=== PATIENT | male | born 1975 | race Caucasian/White ===

== ENCOUNTER 2016-12-15 02:41 | Observation (INO) | payer BC, OTHER ==
[2016-12-15] MEDS ORDERED: Sodium Chloride 0.9% 1000 ML 1,000 ML IV STA ×2 (02:43→04:25)
[2016-12-15] MEDS ORDERED: Narcan 0.4 MG/ML IV ONE (02:43)
[2016-12-15 02:53] LABS: BASOPHIL % 0.3 % (0.0-0.4); Eosinophil % 1.6 % (0.00-5.0); Granulocytes % 55.6 % (36.0-66.0); Lymphocytes % 31.1 % (24.0-44.0); Mean Cell Volume 92.5 fl (78-100); Mean Corpuscular Hemoglobin 30.1 pg (26-32); Monocytes % 11.4 % (0.0-12.0); Platelet Count 395 K/mm3 (150-450); Red Blood Count 4.79 M/mm3 (4.1-5.6); Red Cell Distribution Width 14.3 % (11.5-14.0)
--- NOTE | 2016-12-15 02:56 | ERPHSYRPT ---
- History of Present Illness Time Seen by Provider: 12/15/16 02:41 Source: police Exam Limitations: clinical condition Physician History: PT WAS BROUGHT IN UNRESPONSIVE FROM HOME AND REPORTEDLY HAS BEEN DRINKING ALCOHOLIC BEVERAGES. Allergies/Adverse Reactions: No Known Drug Allergies Allergy (Unverified 12/15/16 03:15) - Review of Systems All Other Systems: Unable due to condition (PT UNRESPONSIVE.) - Nursing Vital Signs Nursing Vital Signs: Initial Vital Signs Temperature 95.0 F Temperature Source Core Pulse Rate [] 126 Pulse Rate 110 Respiratory Rate 26 Blood Pressure [] 135/98 - Physical Exam General Appearance: other (UNRESPONSIVE) Eye Exam: other (PUPILS 4MM AND MINIMALLY REACTIVE TO LIGHT) Ears, Nose, Throat Exam: pharyngeal erythema, other (SNORING) Neck Exam: normal inspection Respiratory Exam: other (TRANSMITTED UPPER AIRWAY SOUNDS BILATERALLY) Cardiovascular Exam: normal heart sounds Gastrointestinal/Abdomen Exam: soft, normal bowel sounds Extremity Exam: pelvis stable, No pedal edema Neurologic Exam: other (UNRESPONSIVE; BABINSKI NOT PRESENT.) Skin Exam: ecchymosis (BRUISING ON THE RIGHT CALF AND LEFT ARM) SpO2 Interpretation: normal SpO2: 95 Oxygen Delivery: Non-rebreather - Course Nursing assessment & vital signs reviewed: Yes EKG Interpreted by Me: RATE ([id number]), Sinus Tach, NORMAL AXIS, NORMAL INTERVALS - Radiology Exams Chest X-ray Interpretation: Interpreted by me, No Pneumonia - CT Exams Head CT Interpretation: Tele-radiologist Report (NO INTRACRANIAL ABNORMALITIES) Cervical Spine CT Interpretation: Tele-radiologist Report (NO ACUTE FINDINGS; NO FRACTURES.) Ordered Tests: Active Orders 24 hr Category Date Time Status Accucheck STAT Care 12/15/16 02:43 Active Director Of Student Financial Services STAT Care 12/15/16 02:43 Active Catheter-Ferney Sánchez STAT Care 12/15/16 02:43 Active EKG-ER Only STAT Care 12/15/16 02:43 Active IV Insertion STAT Care 12/15/16 02:43 Active Oxygen-ED Only NASAL CANNULA 2 lpm Care 12/15/16 02:43 Active Pulse Oximetry (ED) STAT Care 12/15/16 02:43 Active CERVICAL SPINE WO CONTRAST [CT] Stat Exams 12/15/16 02:44 Ordered CHEST 1 VIEW (PORTABLE) Stat Exams 12/15/16 02:44 Ordered HEAD WITHOUT CONTRAST [CT] Stat Exams 12/15/16 02:44 Ordered ABG [ARTERIAL BLOOD GASES] Stat Lab 12/15/16 04:31 Completed ACETAMINOPHEN Stat Lab 12/15/16 02:48 Completed ARTERIAL BLOOD GASES Urgent Lab 12/15/16 02:47 Completed BLOOD CULTURE Stat Lab 12/15/16 03:28 Received CBC W DIFF Stat Lab 12/15/16 02:48 Completed CMP Stat Lab 12/15/16 02:48 Completed CULTURE,URINE Stat Lab 12/15/16 03:02 Received Ethyl Alcohol,Urine Stat Lab 12/15/16 03:02 Completed Lactic Acid Urgent Lab 12/15/16 02:47 Completed MAGNESIUM Stat Lab 12/15/16 02:48 Completed SALICYLATE Stat Lab 12/15/16 02:48 Completed UA W/ MICROSCOPIC Stat Lab 12/15/16 02:53 Completed Urine Triage Profile Stat Lab 12/15/16 02:53 Completed Medication Summary Generic Name Dose Route Start Last Admin Trade Name Valeriano PRN Reason Stop Dose Admin Potassium Chloride 100 mls @ 50 mls/hr 12/15/16 03:40 12/15/16 03:57 Potassium Chloride 20 Meq In Water 100ml IV 12/15/16 05:39 50 mls/hr STAT ONE Administration Sodium Chloride 1,000 mls @ 999 mls/hr 12/15/16 04:25 12/15/16 04:26 Sodium Chloride 0.9% 1000 Ml IV 12/15/16 05:25 999 mls/hr .Q1H1M STA Administration Discontinued Medications Generic Name Dose Route Start Last Admin Trade Name Patricioq PRN Reason Stop Dose Admin Flumazenil 0.2 mg 12/15/16 04:21 12/15/16 04:24 Romazicon 0.5 Mg/5 Ml Injection IV 12/15/16 04:22 0.2 mg STAT ONE Administration Flumazenil Confirm 12/15/16 04:23 Romazicon 0.5 Mg/5 Ml Injection Administered 12/15/16 04:24 Dose 0.1 mg .ROUTE .STK-MED ONE Flumazenil 0.5 mg 12/15/16 04:26 12/15/16 04:30 Romazicon 0.5 Mg/5 Ml Injection IV 12/15/16 04:27 0.5 mg STAT ONE Administration Flumazenil Confirm 12/15/16 04:28 Romazicon 0.5 Mg/5 Ml Injection Administered 12/15/16 04:29 Dose 0.1 mg .ROUTE .STK-MED ONE Sodium Chloride 1,000 mls @ 999 mls/hr 12/15/16 02:43 12/15/16 03:22 Sodium Chloride 0.9% 1000 Ml IV 12/15/16 03:43 999 mls/hr .Q1H1M STA Administration Sodium Chloride Confirm 12/15/16 03:22 Sodium Chloride 0.9% 1000 Ml Administered 12/15/16 03:23 Dose 1,000 mls @ ud .ROUTE .STK-MED ONE Potassium Chloride Confirm 12/15/16 03:56 Potassium Chloride 20 Meq In Water 100ml Administered 12/15/16 03:57 Dose 100 mls @ ud IV .STK-MED ONE Sodium Chloride Confirm 12/15/16 04:25 Sodium Chloride 0.9% 1000 Ml Administered 12/15/16 04:26 Dose 1,000 mls @ ud .ROUTE .STK-MED ONE Naloxone HCl 0.4 mg 12/15/16 02:43 12/15/16 03:21 Narcan 0.4 Mg/Ml IV 12/15/16 02:44 0.4 mg STAT ONE Administration Naloxone HCl 2 mg 12/15/16 03:21 12/15/16 03:23 Narcan 1 Mg/Ml IV 12/15/16 03:22 2 mg STAT ONE Administration Naloxone HCl Confirm 12/15/16 03:18 Narcan 0.4 Mg/Ml Administered 12/15/16 03:19 Dose 0.4 mg .ROUTE .STK-MED ONE Naloxone HCl Confirm 12/15/16 03:22 Narcan 1 Mg/Ml Administered 12/15/16 03:23 Dose 2 mg .ROUTE .STK-MED ONE Naloxone HCl 2 mg 12/15/16 04:26 12/15/16 04:39 Narcan 1 Mg/Ml IV 12/15/16 04:27 2 mg STAT ONE Administration Naloxone HCl Confirm 12/15/16 04:28 Narcan 1 Mg/Ml Administered 12/15/16 04:29 Dose 2 mg .ROUTE .STK-MED ONE Lab/Rad Data: Laboratory Result Diagrams 12/15/16 02:48 12/15/16 02:48 Laboratory Results 12/15/16 12/15/16 12/15/16 Range/Units 04:31 03:02 02:53 WBC (4.0-10.5) K/mm3 RBC (4.1-5.6) M/mm3 Hgb (12.5-18.0) gm/dl Hct (42-50) % MCV (78-100) fl MCH (26-32) pg MCHC (32-36) g/dl RDW (11.5-14.0) % Plt Count (150-450) K/mm3 MPV (6-9.5) fl Gran % (36.0-66.0) % Lymphocytes % (24.0-44.0) % Monocytes % (0.0-12.0) % Eosinophils % (0.00-5.0) % Basophils % (0.0-0.4) % Basophils # (0-0.4) Puncture Site RIGHT RADIAL pCO2 42 (35-45) mmHg pO2 72 L (75-100) mmHg Base Excess 3.9 H (-2.0-2.0) O2 Saturation 89.8 L (94-100) g/dF ABG pH 7.44 (7.35-7.45) ABG HCO3 28.5 H (22-28) ABG O2 Sat (Measured) 97.2 (95-100) % Edmar Test YES A-a Gradient 161 a/A Ratio 0.31 Hemoglobin 13.6 Carboxyhemoglobin 6.2 (0.0-6.9) % THgb Methemoglobin 1.4 (1.4-1.5) % Potassium 3.6 (3.5-5.1) Temperature 37.0 C POC O2 Flow Rate 40 % Inspiratory BiPAP 14 Expiratory BiPAP 6 Sodium (136-145) mEq/L Chloride (98-107) mEq/L Carbon Dioxide (21-32) mEq/L Anion Gap (5-15) MEQ/L BUN (9-20) mg/dL Creatinine (0.55-1.30) mg/dl Estimated GFR ML/MIN Glucose (70-110) MG/DL Lactic Acid (0.4-2.0) Calcium (8.5-10.1) mg/dL Magnesium (1.8-2.4) mg/dL Total Bilirubin (0.2-1.0) mg/dL AST (15-37) U/L ALT (12-78) U/L Alkaline Phosphatase (46-116) U/L Serum Total Protein (6.4-8.2) gm/dL Albumin (3.4-5.0) g/dL Ur Collection Type Urine Color (YELLOW) Urine Appearance (CLEAR) Urine pH 6.0 (5-6) Ur Specific [place] (1.005-1.025) Urine Protein (Negative) Urine Glucose (UA) (NEGATIVE) mg/dL Urine Ketones (NEGATIVE) Urine Nitrite (NEGATIVE) Urine Bilirubin (NEGATIVE) Urine Urobilinogen (0-1) mg/dL Urine WBC (Auto) (NEGATIVE) Urine RBC (Auto) (0-5) Perry/ul Urine Microscopic RBC (0-2) /HPF Urine Microscopic WBC (0-5) /HPF Ur Epithelial Cells (FEW) /HPF Urine Bacteria (NEGATIVE) /HPF Salicylates (2.8-20.0) mg/dl Urine Opiates Level NEG. (NEGATIVE) Ur Methadone NEG. (NEGATIVE) Acetaminophen (10-30) ug/ml Urine Barbiturates NEG. (NEGATIVE) Ur Phencyclidine (PCP) NEG. (NEGATIVE) Urine Amphetamine NEG. (NEGATIVE) U Benzodiazepine Level NEG. (NEGATIVE) Urine Cocaine NEG. (NEGATIVE) Urine Marijuana (THC) NEG. (NEGATIVE) Urine Ethyl Alcohol 170 H (0.00-20) mg/dl Specimen Received 12/15/16 12/15/16 12/15/16 Range/Units 02:53 02:48 02:48 WBC 9.0 (4.0-10.5) K/mm3 RBC 4.79 (4.1-5.6) M/mm3 Hgb 14.4 (12.5-18.0) gm/dl Hct 44.3 (42-50) % MCV 92.5 (78-100) fl MCH 30.1 (26-32) pg MCHC 32.5 (32-36) g/dl RDW 14.3 H (11.5-14.0) % Plt Count 395 (150-450) K/mm3 MPV 9.0 (6-9.5) fl Gran % 55.6 (36.0-66.0) % Lymphocytes % 31.1 (24.0-44.0) % Monocytes % 11.4 (0.0-12.0) % Eosinophils % 1.6 (0.00-5.0) % Basophils % 0.3 (0.0-0.4) % Basophils # 0.03 (0-0.4) Puncture Site pCO2 (35-45) mmHg pO2 (75-100) mmHg Base Excess (-2.0-2.0) O2 Saturation (94-100) g/dF ABG pH (7.35-7.45) ABG HCO3 (22-28) ABG O2 Sat (Measured) (95-100) % Edmar Test A-a Gradient a/A Ratio Hemoglobin Carboxyhemoglobin (0.0-6.9) % THgb Methemoglobin (1.4-1.5) % Potassium 3.0 L* (3.5-5.1) Temperature C POC O2 Flow Rate % Inspiratory BiPAP Expiratory BiPAP Sodium 146 H (136-145) mEq/L Chloride 107 (98-107) mEq/L Carbon Dioxide 27.9 (21-32) mEq/L Anion Gap 14.0 (5-15) MEQ/L BUN 4 L (9-20) mg/dL Creatinine 0.75 (0.55-1.30) mg/dl Estimated GFR > 60 ML/MIN Glucose 110 (70-110) MG/DL Lactic Acid (0.4-2.0) Calcium 8.5 (8.5-10.1) mg/dL Magnesium 2.1 (1.8-2.4) mg/dL Total Bilirubin 0.2 (0.2-1.0) mg/dL AST 22 (15-37) U/L ALT 16 (12-78) U/L Alkaline Phosphatase 71 (46-116) U/L Serum Total Protein 7.0 (6.4-8.2) gm/dL Albumin 3.4 (3.4-5.0) g/dL Ur Collection Type CATH Urine Color LT.YELLOW (YELLOW) Urine Appearance CLEAR (CLEAR) Urine pH 6.0 (5-6) Ur Specific [place] 1.010 (1.005-1.025) Urine Protein NEGATIVE (Negative) Urine Glucose (UA) NEGATIVE (NEGATIVE) mg/dL Urine Ketones NEGATIVE (NEGATIVE) Urine Nitrite NEGATIVE (NEGATIVE) Urine Bilirubin NEGATIVE (NEGATIVE) Urine Urobilinogen 0.2 (0-1) mg/dL Urine WBC (Auto) NEGATIVE (NEGATIVE) Urine RBC (Auto) SMALL (0-5) Perry/ul Urine Microscopic RBC 0-2 (0-2) /HPF Urine Microscopic WBC 0-2 (0-5) /HPF Ur Epithelial Cells FEW (FEW) /HPF Urine Bacteria RARE (NEGATIVE) /HPF Salicylates 4.7 (2.8-20.0) mg/dl Urine Opiates Level (NEGATIVE) Ur Methadone (NEGATIVE) Acetaminophen < 2.0 L (10-30) ug/ml Urine Barbiturates (NEGATIVE) Ur Phencyclidine (PCP) (NEGATIVE) Urine Amphetamine (NEGATIVE) U Benzodiazepine Level (NEGATIVE) Urine Cocaine (NEGATIVE) Urine Marijuana (THC) (NEGATIVE) Urine Ethyl Alcohol (0.00-20) mg/dl Specimen Received 12/15/16 0255 12/15/16 Range/Units 02:47 WBC (4.0-10.5) K/mm3 RBC (4.1-5.6) M/mm3 Hgb (12.5-18.0) gm/dl Hct (42-50) % MCV (78-100) fl MCH (26-32) pg MCHC (32-36) g/dl RDW (11.5-14.0) % Plt Count (150-450) K/mm3 MPV (6-9.5) fl Gran % (36.0-66.0) % Lymphocytes % (24.0-44.0) % Monocytes % (0.0-12.0) % Eosinophils % (0.00-5.0) % Basophils % (0.0-0.4) % Basophils # (0-0.4) Puncture Site RIGHT RADIAL pCO2 65 H* (35-45) mmHg pO2 77 (75-100) mmHg Base Excess 3.4 H (-2.0-2.0) O2 Saturation 88.0 L (94-100) g/dF ABG pH 7.30 L (7.35-7.45) ABG HCO3 32.0 H* (22-28) ABG O2 Sat (Measured) 97.2 (95-100) % Edmar Test YES A-a Gradient 555 a/A Ratio 0.12 Hemoglobin 14.7 Carboxyhemoglobin 8.5 H* (0.0-6.9) % THgb Methemoglobin 1.0 L (1.4-1.5) % Potassium 3.0 L (3.5-5.1) Temperature 37.0 C POC O2 Flow Rate 100 % Inspiratory BiPAP Expiratory BiPAP Sodium (136-145) mEq/L Chloride (98-107) mEq/L Carbon Dioxide (21-32) mEq/L Anion Gap (5-15) MEQ/L BUN (9-20) mg/dL Creatinine (0.55-1.30) mg/dl Estimated GFR ML/MIN Glucose (70-110) MG/DL Lactic Acid 1.6 (0.4-2.0) Calcium (8.5-10.1) mg/dL Magnesium (1.8-2.4) mg/dL Total Bilirubin (0.2-1.0) mg/dL AST (15-37) U/L ALT (12-78) U/L Alkaline Phosphatase (46-116) U/L Serum Total Protein (6.4-8.2) gm/dL Albumin (3.4-5.0) g/dL Ur Collection Type Urine Color (YELLOW) Urine Appearance (CLEAR) Urine pH (5-6) Ur Specific [place] (1.005-1.025) Urine Protein (Negative) Urine Glucose (UA) (NEGATIVE) mg/dL Urine Ketones (NEGATIVE) Urine Nitrite (NEGATIVE) Urine Bilirubin (NEGATIVE) Urine Urobilinogen (0-1) mg/dL Urine WBC (Auto) (NEGATIVE) Urine RBC (Auto) (0-5) Perry/ul Urine Microscopic RBC (0-2) /HPF Urine Microscopic WBC (0-5) /HPF Ur Epithelial Cells (FEW) /HPF Urine Bacteria (NEGATIVE) /HPF Salicylates (2.8-20.0) mg/dl Urine Opiates Level (NEGATIVE) Ur Methadone (NEGATIVE) Acetaminophen (10-30) ug/ml Urine Barbiturates (NEGATIVE) Ur Phencyclidine (PCP) (NEGATIVE) Urine Amphetamine (NEGATIVE) U Benzodiazepine Level (NEGATIVE) Urine Cocaine (NEGATIVE) Urine Marijuana (THC) (NEGATIVE) Urine Ethyl Alcohol (0.00-20) mg/dl Specimen Received - Progress Discussed with Dr.: Fair (OBS - [id number]) - Departure Time of Disposition: 04:47 Departure Disposition: Observation Clinical Impression: UNRESPONSIVENESS, HYPOKALEMIA, ALCOHOL INTOXICATION, HTN, CHRONIC PAIN Condition: Stable Critical Care Time: Yes Critical Care Time(excluding separately billable procedures): 30-74 minutes Referrals: IVETTE SIFUENTES NP [Primary Care Provider] -
[2016-12-15 03:11] LABS: ALBUMIN 3.4 g/dL (3.4-5.0); ALKALINE PHOSPHATASE 71 U/L (46-116); BILIRUBIN,TOTAL 0.2 mg/dL (0.2-1.0); BLOOD UREA NITROGEN 4 mg/dL (9-20); CHLORIDE 107 mEq/L (98-107); Carbon Dioxide 27.9 mEq/L (21-32); Glucose 110 MG/DL (70-110); MAGNESIUM 2.1 mg/dL (1.8-2.4); SGOT/AST 22 U/L (15-37); SGPT/ALT 16 U/L (12-78); SODIUM 146 mEq/L (136-145)
[2016-12-15 03:12] LABS: ACETAMINOPHEN < 2.0 ug/ml (10-30)
[2016-12-15 03:18] LABS: Bacteria RARE /HPF (NEGATIVE); COMPLETE URINE MICROSCOPIC? YES; Collection Type CATH; Epithelial Cells FEW /HPF (FEW); WBC 0-2 /HPF (0-5)
[2016-12-15] MEDS ORDERED: Narcan 0.4 MG/ML ONE (03:18)
[2016-12-15] MEDS ORDERED: NARCAN 1 MG/ML IV ONE ×2 (03:21→04:26)
[2016-12-15] MEDS ORDERED: Sodium Chloride 0.9% 1000 ML 1,000 ML ONE ×2 (03:22→04:25)
[2016-12-15] MEDS ORDERED: NARCAN 1 MG/ML ONE ×2 (03:22→04:28)
[2016-12-15 03:34] LABS: A-aADO2 555; ARTERIAL BLD GAS O2 SATURATION 97.2 % (95-100); ARTERIAL BLOOD GAS BASE EXCESS 3.4 (-2.0-2.0); ARTERIAL BLOOD GAS FIO2 100 %; ARTERIAL BLOOD GAS PO2 77 mmHg (75-100); Lactic Acid 1.6 (0.4-2.0)
[2016-12-15 03:35] LABS: ALLEN TEST OK? YES
[2016-12-15] MEDS ORDERED: POTASSIUM CHLORIDE 20 mEq IN WATER 100ML 100 ML IV ONE ×2 (03:40→03:56)
[2016-12-15] MEDS ORDERED: Romazicon 0.5 MG/5 ML Injection IV ONE ×2 (04:21→04:26)
[2016-12-15] MEDS ORDERED: Romazicon 0.5 MG/5 ML Injection ONE ×2 (04:23→04:28)
[2016-12-15 04:39] LABS: A-aADO2 161; ARTERIAL BLD GAS O2 SATURATION 97.2 % (95-100); ARTERIAL BLOOD GAS BASE EXCESS 3.9 (-2.0-2.0); ARTERIAL BLOOD GAS FIO2 40 %; ARTERIAL BLOOD GAS PO2 72 mmHg (75-100); ARTERIAL BLOOD GAS pH 7.44 (7.35-7.45); BIPAP(E) 6; BIPAP(I) 14
[2016-12-15 04:40] LABS: ALLEN TEST OK? YES
[2016-12-15] MEDS ORDERED: Phenergan 25 MG INJ IV PRN (04:58)
[2016-12-15] MEDS ORDERED: Sodium Chloride 0.9% 1000 ML 1,000 ML IV SCH (05:20)
[2016-12-15 07:18] LABS: A-aADO2 214; ARTERIAL BLD GAS O2 SATURATION 98.2 % (95-100); ARTERIAL BLOOD GAS BASE EXCESS 1.7 (-2.0-2.0); ARTERIAL BLOOD GAS FIO2 50 %; ARTERIAL BLOOD GAS PO2 86 mmHg (75-100); ARTERIAL BLOOD GAS pH 7.39 (7.35-7.45); BIPAP(E) 6; BIPAP(I) 14
[2016-12-15 07:19] LABS: ALLEN TEST OK? YES
[2016-12-15 07:25] LABS: BASOPHIL % 0.1 % (0.0-0.4); Eosinophil % 0.5 % (0.00-5.0); Granulocytes % 81.8 % (36.0-66.0); Lymphocytes % 12.4 % (24.0-44.0); Mean Cell Volume 92.9 fl (78-100); Mean Corpuscular Hemoglobin 30.1 pg (26-32); Monocytes % 5.2 % (0.0-12.0); Platelet Count 362 K/mm3 (150-450); Red Blood Count 4.52 M/mm3 (4.1-5.6); Red Cell Distribution Width 14.5 % (11.5-14.0); White Blood Count 14.6 K/mm3 (4.0-10.5)
[2016-12-15 07:54] LABS: ALKALINE PHOSPHATASE 60 U/L (46-116); ANION GAP 11.5 MEQ/L (5-15); BILIRUBIN,TOTAL 0.2 mg/dL (0.2-1.0); BLOOD UREA NITROGEN 4 mg/dL (9-20); CHLORIDE 113 mEq/L (98-107); Glucose 97 MG/DL (70-110); Potassium 3.8 mEq/L (3.5-5.1); SGOT/AST 19 U/L (15-37); SGPT/ALT 15 U/L (12-78); Total Protein 6.1 gm/dL (6.4-8.2)
[2016-12-15 07:59] LABS: ACETAMINOPHEN < 2.0 ug/ml (10-30); SODIUM 150 mEq/L (136-145); TROPONIN < 0.017 ng/ml (0.000-0.056)
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
[2016-12-15] MEDS ORDERED: TRANDATE 100MG/20 ML MDV IV PRN (08:04)
[2016-12-15] MEDS ORDERED: SODIUM CHLORIDE 0.45% W/ 20 mEq KCL 1,000 ML IV SCH (09:00)
[2016-12-15] MEDS ORDERED: THIAMINE 200 MG/2 ML IV ONE (09:00)
--- NOTE | 2016-12-15 09:18 | XRAY ---
Indication: Acute mental status change. Unconscious. Multiple contiguous axial images obtained through the head without contrast. Comparison: None Study degraded by motion artifact even with repeat CT. No gross acute intracranial hemorrhage, abnormal extra-axial fluid collection, or mass effect. Fourth ventricle is midline without hydrocephalus. Am[place]-white matter differentiation preserved. Bony calvarium intact. There is complete opacification of the visualized right maxillary sinus with near-complete opacification of right ethmoid sinus. Mastoid air cells are clear. Impression: Motion artifact. No gross acute intracranial abnormalities. Incidental paranasal sinus disease. Comment: Preliminary interpretation was made by [facility]. No discrepancy. CT DI 59.30
--- NOTE | 2016-12-15 09:22 | XRAY ---
Indication: Acute mental status change. Unconscious. Multiple contiguous axial images obtained through the cervical spine. Sagittal and coronal reformatted images obtained. Comparison: None Several levels slightly degraded by motion artifact even with repeat CT. Axial images negative for acute fracture, suspicious bony lesions, or spinal canal stenosis. Minimal C5-C7 degenerative endplate spurring. Incidental T1 spina bifida occulta. Sagittal and coronal reformatted images demonstrates lordotic straightening, positional versus paraspinal muscular spasm. Minimal C5-C7 disc space narrowing. No acute compression fracture, subluxation, or jumped facet. Normal-appearing craniocervical junction. Nasal tube tip terminates in the oropharynx. Remaining visualized noncontrasted soft tissues including base of the brain and lung apices unremarkable. Impression: 1. Motion artifact. 2. Negative for acute fracture/subluxation. 3. Lordotic straightening, positional versus paraspinal spasm. Comment: Preliminary interpretation was made by C. No discrepancy. CT DI 45.29
--- NOTE | 2016-12-15 09:22 | XRAY ---
Indication: Acute mental status change. Unconscious. Low oxygenation. Comparison: None Portable chest demonstrates normal heart, lungs, and bony thorax.
--- NOTE | 2016-12-15 09:24 | XRAY ---
Indication: Possible aspiration. Comparison: Taken earlier in the day. Portable chest now slightly degraded by numerous overlying monitoring wires/tubing. Lungs inflated and remain clear. Heart is not enlarged. No new/acute findings.
[2016-12-15] MEDS ORDERED: Ativan 2 MG/1 ML VIAL IV PRN ×2 (10:21→11:48)
[2016-12-15 11:24] LABS: BLOOD UREA NITROGEN 4 mg/dL (9-20); CHLORIDE 111 mEq/L (98-107); Carbon Dioxide 27.7 mEq/L (21-32); Glucose 98 MG/DL (70-110); Potassium 3.7 mEq/L (3.5-5.1); SODIUM 149 mEq/L (136-145)
[2016-12-15] MEDS ORDERED: Zosyn 3.375GM/100 Ml D5W 100 ML IV ONE (12:30)
[2016-12-15] MEDS ORDERED: Keppra 500 MG/5 ML*** 500 MG in D5w 100ML Mini Bag 100 ML 100 ML IV ONE (12:30)
[2016-12-15 12:52] VITALS: BP 146/113; PULSE 123; O2SAT 98
== END 2016-12-15 13:40 | disposition short-term general hospital (02) ==
LOC: ED 02:41 → ICU 05:13
PROVIDERS: ADMIT Family Medicine; ATTEND Family Medicine
DX: R41.82 Altered mental status, unspecified (principal); T50.901A Poisoning by unspecified drugs, medicaments and biological substances, accidental (unintentional), initial encounter; I10 Essential (primary) hypertension; F10.10 Alcohol abuse, uncomplicated
CPT/HCPCS: 36000; 36415; 36600; 51702; 70450; 71010; 72125; 80048; 80053; 80307; 80320; 81000; 82375; 82803; 82962; 83605; 83735; 83930; 83986; 84484; 85025; 87040; 87086; 93005; 93041; 93268; 94002; 94799; 96360; 96374; 99285; G0378; G0479; G0481; J1953; J2060; J2310; J2543; J3480